=== PATIENT | female | born 1935 | race Caucasian/White ===

== ENCOUNTER 2020-03-23 14:10 | Emergency (ER) | payer BC, MEDICARE ==
[2020-03-23] MEDS ORDERED: Ketorolac 30 MG/ML SDV IM ONE (16:54)
--- NOTE | 2020-03-23 17:49 | EDM.PDOC ---
<Aislinn Hutchison M - Last Filed: 03/23/20 17:45> ED HPI GENERAL MEDICAL PROBLEM - General Chief Complaint: Chest Pain Stated Complaint: CHEST PAIN, SOB Time Seen by Provider: 03/23/20 15:17 Chest Pain Score (Numeric/FACES): 7 - Related Data Allergies Allergy/AdvReac Type Severity Reaction Status Date / Time No Known Allergies Allergy Verified 03/23/20 14:31 Home Meds: Home Meds Acetaminophen [Tylenol Arthritis Pain] 650 mg PO Q6HR 03/01/14 [History] Ascorbic Acid 500 mg PO DAILY 03/01/14 [History] Calcium Carb & Citrate/Vit D3 [Calcium + Vitamin D3 Caplet] 2 tab PO DAILY 03/01/14 [History] Hydrochlorothiazide 12.5 mg PO DAILY 03/01/14 [History] Multivitamin [Multi-Vitamin Daily] 1 each PO DAILY 03/01/14 [History] Sherman-3 Fatty Acids [Fish Oil] 500 mg PO DAILY 03/01/14 [History] Simvastatin 80 mg PO BEDTIME 03/01/14 [History] Aspirin 81 mg PO DAILY 05/05/16 [History] Cranberry Fruit Extract [Cranberry] 425 mg PO BID 05/05/16 [History] Dextrin [Fiber] 325 mg PO BID 05/05/16 [History] [id number] 149-Hyal [Glucosamine-Chondr Complex Tab] 1 tab PO DAILY 05/05/16 [History] Melatonin 1 cap PO BEDTIME PRN 05/05/16 [History] Past Medical History HEENT History: Reports: Cataract, Impaired Vision Cardiovascular History: Reports: High Cholesterol, Hypertension Respiratory History: Reports: None Gastrointestinal History: Reports: Diverticulosis, GERD Genitourinary History: Reports: UTI, Recurrent [employer] History: Reports: , Spontaneous Musculoskeletal History: Reports: Arthritis, Back Pain, Chronic, Fracture, Neck Pain, Chronic, Other (See Below) Other Musculoskeletal History: screws and plates in right ankle secondary to fracture Neurological History: Reports: Concussion, Migraines Endocrine/Metabolic History: Reports: Obesity/BMI 30+, Other (See Below) Other Endocrine/Metabolic History: states she had taken meds for her thyroid years ago Oncologic (Cancer) History: Reports: Basal Cell Carcinoma Dermatologic History: Reports: None - Infectious Disease History Infectious Disease History: Reports: Chicken Pox, Measles, Mumps, Shingles - Past Surgical History HEENT Surgical History: Reports: Cataract Surgery Cardiovascular Surgical History: Reports: None GI Surgical History: Reports: Colonoscopy, EGD Female Surgical History: Reports: Breast Biopsy, D&C Neurological Surgical History: Reports: None Oncologic Surgical History: Reports: Biopsy of Breast Dermatological Surgical History: Reports: Skin Biopsy Social & Family History - Family History Family Medical History: Noncontributory - Tobacco Use Smoking Status *Q: Never Smoker - Caffeine Use Caffeine Use: Reports: Coffee, Tea - Recreational Drug Use Recreational Drug Use: No Departure - Departure Time of Disposition: 17:45 Disposition: Home, Self-Care 01 Condition: Good Clinical Impression: Muscle ache Instructions: Musculoskeletal Pain Referrals: Anila Villasenor PA [Primary Care Provider] - Forms: ED Department Discharge Additional Instructions: Please take up to 800 mg Ibuprofen up to 3 times daily. Adjust to the lowest dose possible for pain relief. You may use Tylenol as needed in between the doses of Ibuprofen. Follow up with your primary provider in the next few days if the symptoms persist. Sepsis Event Note (ED) - Evaluation Sepsis Screening Result: No Definite Risk - Problem List & Annotations (1) Muscle ache SNOMED Code(s): 81420218 Code(s): M79.10 - MYALGIA, UNSPECIFIED SITE Status: Acute Priority: High Current Visit: Yes - Problem List Review Problem List Initiated/Reviewed/Updated: Yes - Assessment/Plan Plan: Please take up to 800 mg Ibuprofen up to 3 times daily. Adjust to the lowest dose possible for pain relief. You may use Tylenol as needed in between the doses of Ibuprofen. Follow up with your primary provider in the next few days if the symptoms persist. <OfficerMauri - Last Filed: 03/23/20 17:55> ED HPI GENERAL MEDICAL PROBLEM - General Source of Information: Reports: Patient, Family, RN Notes Reviewed History Limitations: Reports: No Limitations - History of Present Illness INITIAL COMMENTS - FREE TEXT/NARRATIVE: 84-year-old female presents emergency department a complaint of chest pain, she states had chest pain on and off for the last several days however today it got particularly worse she does feel a little short of breath no nausea vomiting no diaphoresis. She also is having a cough that is intermittent. She also admits to being under a lot of stress ED ROS GENERAL - Review of Systems Review Of Systems: See Below Constitutional: Reports: No Symptoms HEENT: Reports: No Symptoms Respiratory: Reports: Shortness of Breath Cardiovascular: Reports: Chest Pain GI/Abdominal: Reports: No Symptoms ED EXAM, GENERAL - Physical Exam Exam: See Below Exam Limited By: No Limitations General Appearance: Alert, WD/WN, No Apparent Distress Respiratory/Chest: No Respiratory Distress, Lungs Clear, Normal Breath Sounds, No Accessory Muscle Use, Chest Non-Tender Cardiovascular: Regular Rate, Rhythm, No Murmur GI/Abdominal: Soft, Non-Tender Course - Vital Signs Last Recorded V/S: Last Vital Signs Temp 100.0 F 03/23/20 14:37 Pulse 96 03/23/20 17:06 Resp 19 03/23/20 17:06 BP 154/82 H 03/23/20 17:06 Pulse Ox 96 03/23/20 17:06 - Orders/Labs/Meds Orders: Active Orders 24 hr Category Date Time Status EKG Documentation Completion [RC] ASDIRECTED Care 03/23/20 15:25 Active Chest 2V [CR] Stat Exams 03/23/20 15:05 Taken EKG 12 Lead [EK] Routine Ther 03/23/20 15:25 Ordered Labs: Laboratory Tests 03/23/20 03/23/20 03/23/20 Range/Units 15:17 15:17 15:17 WBC 10.5 (4.5-11.0) K/uL RBC 4.42 (3.30-5.50) M/uL Hgb 13.7 (12.0-15.0) g/dL Hct 41.9 (36.0-48.0) % MCV 95 (80-98) fL MCH 31 (27-31) pg MCHC 33 (32-36) % Plt Count 219 (150-400) K/uL Neut % (Auto) 77 H (36-66) % Lymph % (Auto) 9 L (24-44) % [place] % (Auto) 7 H (2-6) % Eos % (Auto) 7 H (2-4) % Baso % (Auto) 0 (0-1) % Sodium 139 L (140-148) mmol/L Potassium 5.0 (3.6-5.2) mmol/L Chloride 102 (100-108) mmol/L Carbon Dioxide 28 (21-32) mmol/L Anion Gap 14.0 (5.0-14.0) mmol/L BUN 12 D (7-18) mg/dL Creatinine 0.8 D (0.6-1.0) mg/dL Est Cr Clr Drug Dosing 40.66 mL/min Estimated GFR (MDRD) > 60 (>60) Glucose 126 H (74-106) mg/dL Calcium 9.3 (8.5-10.1) mg/dL Total Bilirubin 0.6 (0.2-1.0) mg/dL AST 36 D (15-37) U/L ALT 26 (12-78) U/L Alkaline Phosphatase 57 (46-116) U/L Troponin I < 0.017 (0.000-0.056) ng/mL NT-Pro-B Natriuret Pep (5-450) pg/mL Total Protein 7.7 (6.4-8.2) g/dL Albumin 3.3 L (3.4-5.0) g/dL Globulin 4.4 H (2.3-3.5) g/dL Albumin/Globulin Ratio 0.8 L (1.2-2.2) Urine Color (YELLOW) Urine Appearance (CLEAR) Urine pH (5.0-8.0) Ur Specific [place] (1.008-1.030) Urine Protein (NEGATIVE) mg/dL Urine Glucose (UA) (NEGATIVE) mg/dL Urine Ketones (NEGATIVE) mg/dL Urine Occult Blood (NEGATIVE) Urine Nitrite (NEGATIVE) Urine Bilirubin (NEGATIVE) Urine Urobilinogen (0.2-1.0) EU/dL Ur Leukocyte Esterase (NEGATIVE) 03/23/20 03/23/20 Range/Units 15:22 17:06 WBC (4.5-11.0) K/uL RBC (3.30-5.50) M/uL Hgb (12.0-15.0) g/dL Hct (36.0-48.0) % MCV (80-98) fL MCH (27-31) pg MCHC (32-36) % Plt Count (150-400) K/uL Neut % (Auto) (36-66) % Lymph % (Auto) (24-44) % [place] % (Auto) (2-6) % Eos % (Auto) (2-4) % Baso % (Auto) (0-1) % Sodium (140-148) mmol/L Potassium (3.6-5.2) mmol/L Chloride (100-108) mmol/L Carbon Dioxide (21-32) mmol/L Anion Gap (5.0-14.0) mmol/L BUN (7-18) mg/dL Creatinine (0.6-1.0) mg/dL Est Cr Clr Drug Dosing mL/min Estimated GFR (MDRD) (>60) Glucose (74-106) mg/dL Calcium (8.5-10.1) mg/dL Total Bilirubin (0.2-1.0) mg/dL AST (15-37) U/L ALT (12-78) U/L Alkaline Phosphatase (46-116) U/L Troponin I (0.000-0.056) ng/mL NT-Pro-B Natriuret Pep 314 (5-450) pg/mL Total Protein (6.4-8.2) g/dL Albumin (3.4-5.0) g/dL Globulin (2.3-3.5) g/dL Albumin/Globulin Ratio (1.2-2.2) Urine Color Yellow (YELLOW) Urine Appearance Slightly cloudy A (CLEAR) Urine pH 5.0 (5.0-8.0) Ur Specific [place] 1.025 (1.008-1.030) Urine Protein Negative (NEGATIVE) mg/dL Urine Glucose (UA) Negative (NEGATIVE) mg/dL Urine Ketones Negative (NEGATIVE) mg/dL Urine Occult Blood Small H (NEGATIVE) Urine Nitrite Negative (NEGATIVE) Urine Bilirubin Negative (NEGATIVE) Urine Urobilinogen 0.2 (0.2-1.0) EU/dL Ur Leukocyte Esterase Negative (NEGATIVE) Meds: Medications Discontinued Medications Generic Name Dose Route Start Last Admin Trade Name Freq PRN Reason Stop Dose Admin Ketorolac Tromethamine 30 mg 03/23/20 16:54 03/23/20 17:05 Toradol IM 03/23/20 16:55 30 mg ONETIME ONE Administration Sepsis Event Note (ED) - Focused Exam Vital Signs: Vital Signs Temp Pulse Resp BP Pulse Ox 03/23/20 17:06 96 19 154/82 H 96 03/23/20 16:04 89 21 H 160/75 H 94 L 03/23/20 15:17 91 24 H 146/65 H 95 03/23/20 14:37 100.0 F 94 16 175/74 H 96 03/23/20 14:34 100.0 F 94 16 175/74 H 96 - Assessment/Plan Plan: Assessment Acuity = acute Site and laterality = atypical chest pain Etiology = unknown Manifestations = none Location of injury = Home Lab values = CBC, CMP, urinalysis, troponin all within normal limits chest x-ray I did review films myself I cannot appreciate any acute process, the official read from radiology is pending, EKG demonstrates a left bundle branch block however this is unchanged from prior EKG Plan Good relief with the Toradol provided in the ED however follow-up primary care 3 to 5 days if no improvement This note was dictated using [employer] voice recognition software please call with any questions on syntax or grammar.
[2020-03-23 18:05] VITALS: BP 128/65; PULSE 94
--- NOTE | 2020-03-24 10:25 | CR ---
CHEST: 2 view CLINICAL HISTORY:Chest pain COMPARISON:None FINDINGS: Heart is enlarged. Pulmonary vascularity is normal. There are atherosclerotic changes in the aorta. No infiltrate is seen. There are no effusions Impression: Cardiomegaly No acute cardiopulmonary process.
== END 2020-03-23 19:03 | disposition home or self-care (01) ==
LOC: JP.ED 14:10
DX: R07.89 Other chest pain (principal); R06.02 Shortness of breath; R05 Cough; M79.10 Myalgia, unspecified site; I10 Essential (primary) hypertension; E78.00 Pure hypercholesterolemia, unspecified; E66.9 Obesity, unspecified; Z68.37 Body mass index [BMI] 37.0-37.9, adult; Z79.82 Long term (current) use of aspirin; Z79.899 Other long term (current) drug therapy
CPT/HCPCS: 36415; 71046; 80053; 81003; 83880; 84484; 85025; 93005; 96372; 99285; J1885; 93010